=== PATIENT | female | born 1965 | race Caucasian/White ===

== ENCOUNTER 2018-08-21 10:23 | Day surgery (SDC) | payer OTHER, SELFPAY ==
[2018-08-19 15:59] LABS: BASOPHILS # (AUTO) 0.1 X10'3 (0-0.2); BASOPHILS % (AUTO) 1.1 % (0-1); EOSINOPHILS # (AUTO) 0.2 X10'3 (0-0.9); EOSINOPHILS % (AUTO) 3.2 % (0-6); LYMPHOCYTES # (AUTO) 1.6 X10'3 (1.1-4.8); LYMPHOCYTES % (AUTO) 26.6 % (21-51); MEAN CORPUSCULAR HEMOGLOBIN 28.1 PG (27.0-31.0); MEAN CORPUSCULAR VOLUME 85.2 FL (78-98); MEAN PLATELET VOLUME 7.5 FL (7.4-10.4); MONOCYTES # (AUTO) 0.5 X10'3 (0-0.9); MONOCYTES % (AUTO) 8.3 % (2-12); NEUTROPHILS # (AUTO) 3.6 X10'3 (1.8-7.7); NEUTROPHILS % (AUTO) 60.8 % (42-75); PRE OP HEMATOCRIT 40.4 % (35.0-45.0); PRE OP HEMOGLOBIN 13.3 g/dL (12.0-16.0); PRE OP PLATELET COUNT 287 X10'3 (140-440); RED BLOOD COUNT 4.74 X10'6 (4.20-5.60); RED CELL DISTRIBUTION WIDTH 13.7 % (11.5-14.5)
[2018-08-19 16:08] LABS: ALBUMIN 3.7 G/DL (3.4-5.0); ALBUMIN/GLOBULIN RATIO 1.1 (1.1-1.5); ALKALINE PHOSPHATASE 48 IU/L (46-116); BLOOD UREA NITROGEN 13 MG/DL (7-18); BUN/CREATININE RATIO 17.3 (6.6-38.0); CHLORIDE 106 MMOL/L (99-107); CREATININE 0.75 MG/DL (0.40-0.90); PRE OP ALT 35 U/L (30-65); PRE OP ANION GAP 5 (8-16); PRE OP AST 20 U/L (10-37); PRE OP BILIRUB, TOTAL 0.3 MG/DL (0.0-1.0); PRE OP GLUCOSE 95 MG/DL (70-104); PRE OP POTASSIUM 3.9 MMOL/L (3.4-5.1); PRE OP SODIUM 139 MMOL/L (135-145); TOTAL CARBON DIOXIDE 27.7 MMOL/L (24-32); TOTAL PROTEIN 7.1 G/DL (6.4-8.2); eGFR 82 ML/MIN
[2018-08-21] VITALS (8 sets, daily range): BP systolic 106–126; BP diastolic 65–85
[~2018-08-21] VITALS: Ht 177.8 cm; Wt 79.4 kg
[~2018-08-21 10:23] MED LIST: GABA-532 PO; ceFAZolin 1GM/D5W- ADD-VANTAGE 50 ML IV ONE
[2018-08-21] MEDS ORDERED: ringers solution, lacted 1,000 ML IV SCH ×2 (11:00→13:57)
[2018-08-21] MEDS ORDERED: famotidine 20mg tablet PO ONE (11:00)
[2018-08-21] MEDS ORDERED: BUPIVAcaine/PF 2.5mg/ml (0.25%) 10ml vial ONE ×2 (11:01→14:37)
[2018-08-21] MEDS ORDERED: LIDOcaine 0.5% (5mg/ml) 50ml vial ONE (13:01)
[2018-08-21] MEDS ORDERED: fentaNYL/PF 50MCG/1 ML 2ML syringe ONE (13:02)
[2018-08-21] MEDS ORDERED: midazolam 2 mg/2 ml injection ONE (13:03)
[2018-08-21] MEDS ORDERED: proCHLORperazine 10 MG/2 ml inj IV PRN (14:00)
[2018-08-21] MEDS ORDERED: ondansetron/PF 4mg/2ml inj IV PRN (14:00)
[2018-08-21] MEDS ORDERED: morphine 4 MG/ML inj SYRINge IV PRN ×2 (14:00)
[2018-08-21] MEDS ORDERED: meperidine/PF 25mg/ml syringe IV PRN ×3 (14:00)
[2018-08-21] MEDS ORDERED: propofol inj 20 ML IV ONE (14:20)
--- NOTE | 2018-08-21 14:24 | NUR ---
Received from OR via BED, accompanied by Anesthesiologist DR RENTERIA and report given by Anesthesiologist. PT AWAKE, DENIES PAIN, LEFT ELBOW W/HIRAM WRAP COVERING MILLI BOSE. Addendum: 08/21/18 at 1450 by Leah Murguia RN Amended: Links added.
[2018-08-21] MEDS ORDERED: HYDROcodone/acetaminophen 5mg/325mg tablet PO ONE (14:55)
== END 2018-08-21 15:24 | disposition home or self-care (01) ==
LOC: PAS 10:23
PROVIDERS: ATTEND Orthopaedic Surgery Hand Surgery
DX: G56.22 Lesion of ulnar nerve, left upper limb (principal); Z79.899 Other long term (current) drug therapy; Z98.890 Other specified postprocedural states
CPT/HCPCS: 36415; 64718; 80053; 82948; 85025; 93005; J0690; J2001; J2250; J2704; J3010; J3490; A4615; A6449; J7120